=== PATIENT | female | born 1985 | race Caucasian/White ===

== ENCOUNTER 2017-01-31 06:01 | Day surgery (SDC) | payer MEDICAID ==
[2017-01-31] MEDS ORDERED: LIDOCAINE 1% 2 ML INJ ID PRN (06:12)
[2017-01-31] MEDS ORDERED: LR 1,000 ML IV ONE (06:12)
--- NOTE | 2017-01-31 06:55 | PDANEPAE ---
ANE History of Present Illness 31 w/ abdominal pain, here for screening egd/colo ANE Past Medical History - Cardiovascular History Hx Hypertension: No Hx Arrhythmias: No Hx Chest Pain: No Hx Coronary Artery / Peripheral Vascular Disease: No Hx CHF / Valvular Disease: No Hx Palpitations: No - Pulmonary History Hx COPD: No Hx Asthma/Reactive Airway Disease: No Hx Recent Upper Respiratory Infection: No Hx Oxygen in Use at Home: No - Neurologic History Hx Cerebrovascular Accident: No Hx Seizures: No Hx Dementia: No - Endocrine History Hx Diabetes: No Hypothyroid: Yes - Renal History Hx Renal Disorders: No - Liver History Hx Hepatic Disorders: No - Neurological & Psychiatric Hx Hx Neurological and Psychiatric Disorders: No - Cancer History Hx Cancer: No - Congenital Disorder History Hx Congenital Disorders: No - GI History Hx Gastrointestinal Disorders: Yes - Chronic Pain History Chronic Pain: Yes ANE Review of Systems - Exercise capacity Exercise capacity: >=4 METS METS (RN): 5 METS - Systems Gastrointestinal: Reports: abdominal pain ANE Patient History - Allergies Allergies/Adverse Reactions: No Known Allergies Allergy (Verified 02/09/13 15:51) - Home Medications Home medications: home medication list seen and reviewed Home Medications: Herbals/Supplements -Info Only 01/30/17 [Last Taken 01/30/17 08:00] Thyroid 01/30/17 [Last Taken 01/30/17 08:00] - NPO status NPO Since - Liquids (Date): 01/30/17 NPO Since - Liquids (Time): 21:00 NPO Since - Solids (Date): 01/30/17 NPO Since - Solids (Time): 08:30 - Anes Hx Anes Hx: no prior problems - Smoking Hx Smoking Status: Never smoked - Alcohol Use Alcohol Use: None - Family Anes Hx Family Anes Hx: none Family Hx Anesthesia Complications: NEG ANE Labs/Vital Signs - Vital Signs Blood Pressure: 95/60 Heart Rate: 48 Respiratory Rate: 14 O2 Sat (%): 96 Height: 172.72 cm Weight: 54.431 kg ANE Physical Exam - Airway Neck exam: FROM Mallampati Score: Class 2 Mouth exam: normal dental/mouth exam - Pulmonary Pulmonary: no respiratory distress, clear to auscultation - Cardiovascular Cardiovascular: regular rate and rhythym, no murmur, rub, or gallop - ASA Status ASA Status: II ANE Anesthesia Plan Anesthesia Plan: MAC
[2017-01-31] MEDS ORDERED: PROPOFOL/EMULSION 500 MG/50 ML BOTTLE IV ONE (07:13)
--- NOTE | 2017-01-31 07:20 | PDGENHP ---
History & Physical Chief Complaint: abdominal pain History of Present Illness: 31 year old female presents for evaulation of chronic diffuce abdominal pain as well as a change in bowel habits. Pertinent Past, Social, Family History: SoHx: NO alcohol or vis. 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 PMHx: Chronic pain Relevant Physical Exam: HEENT: Anicteric. CV: RRR +s1s2. Lungs: CTAB No w/r/ r. Abd: soft, nt, +bs. No g/r/. Ext: No c/c/e Cardiorespiratory Assessment: ASA: 2
[2017-01-31] MEDS ORDERED: ACETAMINOPHEN 500 MG TAB PO PRN (07:42)
[2017-01-31] MEDS ORDERED: NALOXONE HCL 0.4 MG/ML INJ IVP PRN (07:42)
[2017-01-31] MEDS ORDERED: ONDANSETRON 4 MG/2 ML VIAL IVP PRN (07:42)
--- NOTE | 2017-01-31 07:56 | POSTOPPROG ---
Post Op Note Date of Operation: 01/31/17 Surgeon: Mike Boogie Anesthesia: IV Sedation Pre-op Diagnosis: abdominal pain, change in bowel habits Post-op Diagnosis: gastritis, change in bowel habits Indication: see pre op Procedure: egd with bx, colonoscopy with bx Findings: hh,gastritis Inf/Abcess present in the surg proc area at time of surgery?: No
--- NOTE | 2017-01-31 08:10 | GPN ---
[f rep st] PROCEDURE NOTE DATE OF PROCEDURE: 01/31/2017 PROCEDURE: Esophagogastroduodenoscopy with biopsy. INDICATION: The patient is a 31-year-old female who presents for evaluation of epigastric as well as lower quadrant abdominal pain. She presents for further evaluation. CONSENT: The risks, benefits, and alternatives of the procedure were discussed in great detail with the patient. The risk of infection, bleeding, perforation , and sedation were discussed. All questions were answered. Informed consent was obtained. MEDICATIONS: Propofol. Please see Anesthesiology record for details. ESTIMATED BLOOD LOSS: Insignificant. ESOPHAGOGASTRODUODENOSCOPY EXAMINATION: The Olympus upper endoscope was inserted in her mouth and advanced to the esophagus. The proximal, mid, and distal esophagus were normal in appearance. The stomach was entered and closely examined, including retroflexed views of the angularis, cardia, and fundus. The patient was noted to have a moderate- sized hiatal hernia. The mucosa in the antrum and the body of the stomach was erythematous in a patchy distribution, and a biopsy was taken. The duodenal bulb and second portion of the duodenum were normal in appearance. Biopsies were taken to rule out celiac sprue. IMPRESSION: 1. Hiatal hernia. 2. Gastritis, status post biopsy. 3. Biopsy taken to rule out celiac sprue. RECOMMENDATIONS: 1. Follow up on biopsy results. 2. Proceed with colonoscopic evaluation. /[id number]/MODL MTDD
--- NOTE | 2017-01-31 08:31 | GPN ---
[f rep st] PROCEDURE NOTE DATE OF PROCEDURE: 01/31/2017 PROCEDURE: Colonoscopy with biopsy. INDICATION: The patient is a 31-year-old female, who presents for evaluation of lower quadrant abdominal pain as well as a change in bowel habits/diarrhea. CONSENT: Risks, benefits, and alternatives of the procedure were discussed in great detail with the patient. Risks of infection, bleeding, perforation, and sedation were discussed. All questions answered. Informed consent was obtained. MEDICATIONS: Propofol. Please see Anesthesiology record for details. ESTIMATED BLOOD LOSS: Insignificant. COLONOSCOPIC EVALUATION: A rectal exam was done and no palpable mass was felt. The Olympus adult colonoscope was introduced in the rectum and advanced to cecum, where the ileocecal valve and appendiceal orifice were seen. The terminal ileum was intubated. The terminal ileum was normal in appearance. The colonic mucosa was carefully examined on both insertion and withdrawal of the scope. The quality of prep was good except there were chunks of solid debris scattered throughout the colon, which did clog the scope several times. These areas were aggressively suctioned and flushed with good visualization. The colonic mucosa was normal in appearance. Biopsies taken for microscopic colitis. 1. Normal terminal ileum. 2. Random biopsies of colon. RECOMMENDATIONS: 1. Follow up on biopsy results. /[id number]/MODL MTDD
[2017-01-31 09:30] VITALS: PULSE 51; RESP 16; TEMP 97.7
[2017-01-31 09:35] VITALS: BP 92/66; O2SAT 97
--- NOTE | 2017-01-31 12:19 | POSTANESTH ---
Post Anesthetic Evaluation Cardiovascular Status: Normal, Stable, Similar to Pre-Op Cond Respiratory Status: Normal, Stable, Similar to Pre-op Cond. Level of Consciousness/Mental Status: Can Participate in Eval, Alert and Oriented Pain Control: Adequate, Prn Tx Ordered Nausea/Vomiting Control: Adequate, Prn Tx Ordered Complications Possibly Related to Anesthesia: None Noted
== END 2017-01-31 10:05 | disposition home or self-care (01) ==
LOC: FSGY 06:01
PROVIDERS: ATTEND Internal Medicine Gastroenterology
PROC: 0DBE8ZX Excision of Large Intestine, Via Natural or Artificial Opening Endoscopic, Diagnostic (ICD-10-PCS; principal; 2017-01-31 07:30)
PROC: 0DB98ZX Excision of Duodenum, Via Natural or Artificial Opening Endoscopic, Diagnostic (ICD-10-PCS; principal; 2017-01-31 07:30)
PROC: 0DB68ZX Excision of Stomach, Via Natural or Artificial Opening Endoscopic, Diagnostic (ICD-10-PCS; principal; 2017-01-31 07:30)
DX: K44.9 Diaphragmatic hernia without obstruction or gangrene (principal); K29.70 Gastritis, unspecified, without bleeding; K58.9 Irritable bowel syndrome, unspecified
CPT/HCPCS: J2704